=== PATIENT | male | born 1965 | race Hispanic/Latino ===

== ENCOUNTER → 2024-12-04 | Day surgery (SDC) | payer OTHER ==
[~2024-12-04] MED LIST: LACTATED RINGER'S 1,000 ML ONE; LOSARTAN POTASS25 MG PO; MOUNJARO5 MG/0.5 M INJ; PRAVASTATIN SOD20 MG PO
[2024-12-04 09:42] VITALS: TEMP 97.3
[2024-12-04 10:15] VITALS: BP 135/85; PULSE 75; RESP 16; O2SAT 98
== END | disposition home or self-care (01) ==
LOC: OR 07:00
PROVIDERS: ATTEND Internal Medicine Gastroenterology
DX: Z12.11 Encounter for screening for malignant neoplasm of colon (principal); K63.5 Polyp of colon; K64.8 Other hemorrhoids; I10 Essential (primary) hypertension; E11.9 Type 2 diabetes mellitus without complications; Z68.31 Body mass index [BMI] 31.0-31.9, adult; Z79.85 Long-term (current) use of injectable non-insulin antidiabetic drugs; Z79.899 Other long term (current) drug therapy; Z01.810 Encounter for preprocedural cardiovascular examination
CPT/HCPCS: 36415; 45385; 82948; 93005; J7121; 45378